=== PATIENT | male | born 2000 | race Caucasian/White ===

== ENCOUNTER 2019-07-24 11:56 | Day surgery (SDC) | payer OTHER ==
[~2019-07-24 11:56] MED LIST: Iopamidol 370 76% 100 ML VIAL ONE; Iopamidol 370 76% 50 ML VIAL FS ONE
[2019-07-24 12:27] LABS: #Eosinphils 0.2 thou/uL (0.0-0.7); #Lymphocytes 1.3 thou/uL (1.20-3.40); #Monocytes 0.8 thou/uL (0.11-0.59); #Neutrophils 9.7 thou/uL (1.40-6.50); %Basophils 0.4 % (0.0-1.0); %Eosinophils 1.4 % (0.0-10.0); %Lymphocytes 10.9 % (21.0-51.0); %Monocytes 6.3 % (0.0-10.0); Hemoglobin 15.6 g/dL (14.0-18.0); Mean Corpuscular HGB CONC 32.8 g/dL (32.0-36.0); Mean Corpuscular Hemoglobin 29.2 pg (27.0-31.0); Mean Corpuscular Volume 88.9 fL (78.0-98.0); Mean Platelet Volume 8.2 fL (7.4-10.4); Platelet Count 242 thou/uL (130-400); RBC Distribution Width 11.6 % (11.5-14.5); Red Blood Cell (RBC) Count 5.35 mill/uL (4.70-6.10)
[2019-07-24 12:40] LABS: Bilirubin Negative (Negative); Blood, Urine Negative (Negative); Clarity Clear (Clear); Glucose, Urine (Dipstick) Normal (Negative); Leukocyte Negative Leu/uL (Negative); Nitrite Negative (Negative); Protein, Urine (Dipstick) Negative (Neg-Trace); Urobilinogen Normal mg/dL (Less than 2)
[2019-07-24 12:48] LABS: ALT (SGPT) 29 U/L (8-55); AST (SGOT) 16 U/L (5-34); Albumin 4.9 g/dL (3.5-5.0); Alkaline Phosphatase 66 U/L (40-110); Anion Gap 11 mmol/L (10-20); BUN (Urea Nitrogen) 18 mg/dL (8.9-20.6); Calc. Creatinine Clearance 0 mL/min (70-130); Calcium 9.8 mg/dL (7.8-10.44); Carbon Dioxide 28 mmol/L (22-29); Chloride 103 mmol/L (98-107); Estimated GFR-MDRD 79; Globulin 2.8 g/dL (2.4-3.5); Glucose 99 mg/dL (70-105); Lipase 14 U/L (8-78); Potassium 4.4 mmol/L (3.5-5.1); Protein, Total 7.7 g/dL (6.0-8.3); Sodium 138 mmol/L (136-145)
[2019-07-24] MEDS ORDERED: Succinylcholine Chloride 20 MG/ML 10 ml SYRINGE FS ONE (13:02)
[2019-07-24] MEDS ORDERED: PROPOFOL 200 MG/20 ML VIAL ONE (13:02)
[2019-07-24] MEDS ORDERED: Glycopyrrolate 0.2 MG/ML 5 ML SYRINGE ONE (13:02)
[2019-07-24] MEDS ORDERED: Lidocaine 1% PF 5 ML VIAL ONE (13:02)
[2019-07-24] MEDS ORDERED: Dexamethasone 20 MG/5 ML VIAL ONE (13:02)
[2019-07-24] MEDS ORDERED: Ondansetron PF 4 MG/2 ML Vial ONE (13:02)
[2019-07-24] MEDS ORDERED: Rocuronium Bromide 10 MG/ML (10ML VIAL) ONE (13:02)
--- NOTE | 2019-07-24 15:20 | CT ---
CT ABDOMEN AND PELVIS WITH IV CONTRAST: 07/24/19 PROVIDED CLINICAL HISTORY: Right lower quadrant pain. FINDINGS: The visualized lung bases are free of significant opacity. The liver, spleen, pancreas, kidneys and adrenal glands appear unremarkable. The appendix is dilated and demonstrates mural thickening and mural enhancement with mild surrounding inflammatory fat stranding. No bowel dilatation, free fluid or free air apparent. No regional lymph node enlargement. The regional major vascular structures appear unremarkable. The osseous structures demonstrate no concerning lytic or blastic lesions. IMPRESSION: Findings compatible with acute appendicitis. POS: [facility]
[2019-07-24] MEDS ORDERED: Piperacillin/Tazobactam 3.375 GM VIAL ONE (15:59)
[2019-07-24] MEDS ORDERED: Bupivacaine PF 0.5% 30 ML VIAL ONE (16:35)
[2019-07-24] MEDS ORDERED: Lidocaine 1% w/Epinephrine 1:100K 20 ML VIAL ONE (16:35)
[2019-07-24] MEDS ORDERED: Ketorolac Tromethamine 30 MG/ML VIAL ONE (17:10)
--- NOTE | 2019-07-24 17:40 | HP ---
HISTORY OF PRESENT ILLNESS: Lenin Malone is a 19-year-old male, last night developed onset of right lower quadrant pain, anorexia without nausea, vomiting, or fever. He presented to the emergency room. CT scan revealed changes consistent with appendicitis. Dr. Pagan asked me to see him. He has been given Zosyn. 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 ALLERGIES: NONE. TOBACCO: None. ALCOHOL: Socially. MEDICATIONS: None routinely. PAST MEDICAL HISTORY: noncontributory. REVIEW OF SYSTEMS: Noncontributory. FAMILY HISTORY: Noncontributory. PHYSICAL EXAMINATION: VITAL SIGNS: Blood pressure 147/86, heart rate 74, temperature 98.1 degrees. Weight 72 kg. Respiratory rate 16. HEAD, EARS, EYES, NOSE, and THROAT: Unremarkable. LUNGS: Clear to auscultation. CARDIAC: Regular rate and rhythm without murmur or gallop. ABDOMEN: Tenderness in right lower quadrant. No guarding or rebound. EXTREMITIES: Unremarkable. ASSESSMENT AND PLAN: Acute appendicitis. Recommend laparoscopic video appendectomy. Risks and benefits explained. He consents. Job ID: [id number]
[2019-07-24] MEDS ORDERED: Fentanyl 250 MCG/5 ML VIAL ONE (19:19)
--- NOTE | 2019-07-24 20:26 | OP ---
DATE OF PROCEDURE: 07/24/2019 PREOPERATIVE DIAGNOSIS: Acute appendicitis. POSTOPERATIVE DIAGNOSIS: Acute appendicitis. PROCEDURE PERFORMED: Laparoscopic video appendectomy. ANESTHESIA: General, local 0.5% Marcaine 30 mL mixed with 1% Xylocaine with epinephrine 20 mL. FINDINGS: Early appendicitis. DESCRIPTION OF PROCEDURE: Patient was taken to the operating room, where under general anesthesia abdomen was clipped of hair. Jurado catheter was placed at the beginning the procedure and removed at the end. Abdomen was prepared with ChloraPrep and draped in routine fashion. Local anesthetic was infiltrated in the skin and subcutaneous tissue about each port site. Infraumbilical incision was made pneumoperitoneum to 15 mmHg obtained with a Veress needle, replaced with a 5 port. Right lateral subcostal incision made, the 5 port placed. Suprapubic incision was made and a 12 port placed under laparoscopic visualization. The appendix was only inflamed and mesoappendix taken down with the LigaSure. The stump of the appendix divided with Endo-JOANNA blue load stapler. Stapled cecal stump was hemostatic and secured. Appendix submitted to Pathology. Irrigant and pneumoperitoneum were evacuated. All instruments removed. Suprapubic fascia was approximated with 0 Vicryl. Skin incisions were approximated with subdermal 4-0 Monocryl and Sutter glue applied. Patient tolerated the procedure well. Job ID: [id number]
[2019-07-24] MEDS ORDERED: HYDROcodone/Acetaminophen 5/325 mg Tablet ONE (20:42)
== END 2019-07-24 21:30 | disposition home or self-care (01) ==
LOC: ERS 11:56 → SDC 16:37
PROVIDERS: ATTEND Specialist
PROC: 0DTJ4ZZ Resection of Appendix, Percutaneous Endoscopic Approach (ICD-10-PCS; principal; 2019-07-24)
DX: K35.80 Unspecified acute appendicitis (principal)
CPT/HCPCS: 74177; 80053; 81003; 83690; 85025; 88304; 96365; J1100; J1885; J2001; J2405; J2543; J2704; J3010; Q9967; S0020